=== PATIENT | female | born 1965 | race Caucasian/White ===

== ENCOUNTER → 2017-05-07 15:51 | Outpatient (CLI) | payer OTHER, SELFPAY ==
[2017-05-07 15:53] LABS: Bacteria 0 SEEN /hpf (None Seen); Mucous, Urine 0 SEEN /hpf (<or=2+); Red Blood Cells-Urine 0 SEEN /hpf (0-5); White Blood Cells 0 SEEN /hpf (0-5)
[2017-05-07 16:42] LABS: Color, Urine Straw (Yellow); Glucose, Dipstick Normal (Normal); Ketone-Dipstick Negative (Negative); Leukocyte Esterase-Dipstick Negative /ul (Negative); Nitrite-Dipstick Negative (Negative); Occult Blood-Urine Negative /ul (Negative); Protein-Dipstick Negative (Negative); Urine Bilirubin Dipstick Negative (Negative); Urine Clarity Clear (Clear); Urine Urobilinogen Normal (Normal); Urine pH 6.5 (5.0 - 8.0)
[2017-05-07 16:54] LABS: Squamous Epithelial Cells - UA 0-5 SEEN /hpf (5-10)
== END ==
PROVIDERS: Visit Provider Physician Assistant Surgical
DX: R30.0 Dysuria (principal)
CPT/HCPCS: 81001; 87086

== ENCOUNTER → 2017-07-24 14:16 | Outpatient (CLI) | payer OTHER, SELFPAY ==
[2017-07-24 14:20] LABS: Mucous, Urine 0 SEEN /hpf (<or=2+); Squamous Epithelial Cells - UA 0 SEEN /hpf (5-10)
[2017-07-24 14:24] LABS: Color, Urine Yellow (Yellow); Glucose, Dipstick Normal (Normal); Ketone-Dipstick Negative (Negative); Leukocyte Esterase-Dipstick 100 /ul (Negative); Nitrite-Dipstick Negative (Negative); Occult Blood-Urine 10 /ul (Negative); Protein-Dipstick Negative (Negative); Urine Bilirubin Dipstick Negative (Negative); Urine Clarity Clear (Clear); Urine Urobilinogen Normal (Normal)
[2017-07-24 14:36] LABS: Bacteria RARE /hpf (None Seen); Red Blood Cells-Urine 0-5 SEEN /hpf (0-5); White Blood Cells 0-5 SEEN /hpf (0-5)
== END ==
PROVIDERS: Visit Provider Nurse Practitioner Family
DX: R10.2 Pelvic and perineal pain (principal)
CPT/HCPCS: 81001; 87086; 87088

== ENCOUNTER → 2018-03-25 08:24 | Outpatient (CLI) | payer OTHER, SELFPAY ==
--- NOTE | 2018-03-25 08:29 | BI_ITS ---
MAMMOGRAPHY - BILATERAL SCREENING REASON FOR EXAM: Female, 52 years old. Routine annual screening examination. PERTINENT HISTORY: Grandmother with breast cancer. TECHNIQUE: Digital bilateral breast dejan (3D mammographic acquisition) in the CC and MLO projections. 2-D mediolateral oblique (MLO) and craniocaudad (CC) views of both breasts were obtained. CAD: Full Field Digital Mammography with Computer Added Detection was performed. COMPARISON: Comparison is made with prior study dated May 11, 2016. FINDINGS: Breast Composition: The breasts are heterogeneously dense, which may obscure small masses. There are no dominant masses or suspicious calcifications. Stable benign-appearing bilateral axillary lymph nodes. No other significant abnormalities are identified. There has been no significant change since the prior study. BI/SCREENING MAMM (CAD), BILAT IMPRESSION: Stable bilateral screening mammogram. Yearly follow-up mammogram recommended. (A) ASSESSMENT CATEGORY: BIRADS Category 2: Benign. A letter regarding these results will be sent to the patient by the facility within 30 days. Approximately 10% of breast cancers are not detected by mammography. A normal mammogram should not delay biopsy of a clinically suspicious abnormality. [id number] Electronically Signed: Alexis Greenfield MD at 9:42 EST , Service support ,
== END ==
DX: Z12.31 Encounter for screening mammogram for malignant neoplasm of breast (principal)
CPT/HCPCS: 77063; 77067

== ENCOUNTER → 2019-01-10 15:27 | Outpatient (CLI) | payer OTHER, SELFPAY ==
[2019-01-09 14:26] VITALS: BMI 22.4
[2019-01-10 16:19] LABS: Bacteria 0 SEEN /hpf (None Seen); Mucous, Urine 0 SEEN /hpf (<or=2+)
[2019-01-10 16:25] LABS: Color, Urine Yellow (Yellow); Glucose, Dipstick Normal (Normal); Ketone-Dipstick Negative (Negative); Leukocyte Esterase-Dipstick 100 /ul (Negative); Nitrite-Dipstick Negative (Negative); Occult Blood-Urine Negative /ul (Negative); Protein-Dipstick Negative (Negative); Urine Bilirubin Dipstick Negative (Negative); Urine Clarity Clear (Clear); Urine Urobilinogen Normal (Normal)
[2019-01-10 16:45] LABS: Red Blood Cells-Urine 0-5 SEEN /hpf (0-5); Squamous Epithelial Cells - UA 0-5 SEEN /hpf (5-10); White Blood Cells 10-25 SEEN /hpf (0-5)
== END ==
PROVIDERS: Referring Provider Nurse Practitioner Family; Visit Provider Nurse Practitioner Family
DX: R30.0 Dysuria (principal)
CPT/HCPCS: 81001; 87086; 87088; 87186

== ENCOUNTER → 2019-05-24 16:04 | Outpatient (CLI) | payer OTHER, SELFPAY ==
[2019-05-24 15:36] VITALS: BMI 25.2
[2019-05-24 16:45] LABS: Absolute Neutrophil Count 3.7 X10^3/uL (2.0-7.7); Basophil# 0.03 X10^3/uL; Basophil% 0.5 % (0-1); Eosinophil# 0.03 X10^3/uL; Eosinophils% 0.5 % (0-5); Hemoglobin 13.9 g/dL (12.0-15.0); Lymphocyte % 31.1 % (19-41); Mean Corp Hgb Conc 33.1 g/dL (32-36); Mean Corpuscular Hgb 31.7 pg (27.0-32.0); Mean Corpuscular Volume 95.9 fL (81-99); Mean Platelet Vol. 9.5 fl (6.2-12.0); Monocyte# 0.42 X10^3/uL; Monocyte% 6.9 % (0-10); NRBC Flagged by Analyzer 0 % (0-5); Neutrophil # 3.71 X10^3/uL (2.7-7.7); Neutrophil % 60.7 % (47-70); Platelet Count 211 K/mm3 (150-450); RBC Distribution Width CV 12.1 % (11.6-14.6); RBC Distribution Width SD 42.4 fl (35.1-43.9); Red Blood Count 4.38 M/mm3 (4.2-5.4); White Blood Count 6.1 K/mm3 (4.4-11.0)
[2019-05-24 17:05] LABS: ALB/GLOB Ratio 1.1 RATIO (0.9-2.4); AST(SGOT) 20 U/L (15-37); Alanine Aminotransfer ALT/SGPT 24 U/L (13-56); Albumin, Serum 3.9 g/dL (3.2-5.0); Alkaline Phosphatase 83 U/L (45-117); Anion Gap 6 (5-15); BUN 15 mg/dL (7-18); BUN/Creat Ratio 16.6 RATIO (10-20); Calcium,Total 9.1 mg/dL (8.5-10.1); Chloride 104 mmol/L (98-107); Cholesterol 184 mg/dL (200); EST Glomerular Filtration Rate 69 mL/min (>60); Est Glom Filt Rate - Afr Amer 84 mL/min (>60); Globulin 3.4 g/dL (2.2-4.2); Glucose 86 mg/dL (74-106); High Density Lipoprotein 36 mg/dL; Potassium 3.6 mmol/L (3.5-5.1); Protein, Total 7.3 g/dL (6.4-8.2); Sodium Level 139 mmol/L (136-145); Triglycerides 184 mg/dL; Very Low Density Lipoprotein 37 mg/dL (5-40)
== END ==
PROVIDERS: PCP Internal Medicine; Visit Provider Internal Medicine
DX: I10 Essential (primary) hypertension (principal)
CPT/HCPCS: 36415; 80053; 80061; 85025

== ENCOUNTER → 2019-07-21 08:28 | Outpatient (CLI) | payer OTHER, SELFPAY ==
[2019-05-24 15:36] VITALS: BMI 25.2
--- NOTE | 2019-07-21 08:29 | BI_ITS ---
MAMMOGRAPHY - BILATERAL SCREENING REASON FOR EXAM: Female, 54 years old. Routine annual screening examination. PERTINENT HISTORY: Grandmother with breast cancer. TECHNIQUE: Digital bilateral breast dae (3D mammographic acquisition) in the CC and MLO projections. 2-D mediolateral oblique (MLO) and craniocaudad (CC) views of both breasts were obtained. CAD: Full Field Digital Mammography with Computer Added Detection was performed. COMPARISON: Comparison is made with prior examination dated March 25, 2018 and May 11, 2016. FINDINGS: Breast Composition: The breasts are heterogeneously dense, which may obscure small masses. There are no dominant masses or suspicious calcifications. Stable benign-appearing bilateral axillary lymph nodes. No other significant abnormalities are identified. There has been no significant change since the prior study. BI/SCREEN MAMM (CAD) W/DAE BILAT IMPRESSION: Stable bilateral screening mammogram. Yearly follow-up mammogram recommended. (A) ASSESSMENT CATEGORY: BIRADS Category 2: Benign. A letter regarding these results will be sent to the patient by the facility within 30 days. Approximately 10% of breast cancers are not detected by mammography. A normal mammogram should not delay biopsy of a clinically suspicious abnormality. [id number] Electronically Signed: Alexis Greenfield, at 11:12 EDT , Service support ,
== END ==
PROVIDERS: PCP Internal Medicine; Referring Provider Internal Medicine; Visit Provider Internal Medicine
DX: Z12.31 Encounter for screening mammogram for malignant neoplasm of breast (principal)
CPT/HCPCS: 77063; 77067

== ENCOUNTER → 2019-10-31 13:25 | Outpatient (CLI) | payer OTHER, SELFPAY ==
[2019-10-31 09:25] VITALS: BMI 22.4
[2019-11-02 20:44] LABS: HPV APTIMA, High Risk Negative (Negative)
== END ==
PROVIDERS: PCP Internal Medicine; Referring Provider Nurse Practitioner Women's Health; Visit Provider Nurse Practitioner Women's Health
DX: Z12.4 Encounter for screening for malignant neoplasm of cervix (principal)
CPT/HCPCS: 87624; 88175; G0145

== ENCOUNTER 2019-11-22 20:16 | Emergency (ER) | payer OTHER, SELFPAY ==
[2019-10-31 09:25] VITALS: BMI 22.4
[2019-11-22 20:17] VITALS: BP 134/89; PULSE 108; RESP 20; TEMP 37.6; O2SAT 98; BMI 25.0
--- NOTE | 2019-11-22 21:18 | ED.VIS.GEN ---
History of Present Illness Chief Complaint: Bite Narrative: This patient is a 54-year-old female who was bit by a stray cat. She was bit on the left leg. This occurred about 2 hours before presentation. This is not someone's pet it is unable to be quarantined. She does note that it has bitten other neighbors. Patient otherwise denies any recent illness. No fevers vomiting diarrhea cough rhinorrhea. Past Medical History - Allergies and Home Meds Allergies/Adverse Reactions: Allergies No Known Allergies Allergy (Unverified 11/22/19 20:17) Primary Care Physician: Yunior Rosario MD [Primary Care Provider] - Smoking Status: Never smoker Physical Exam Vital Signs/Narrative: Vital Signs Temp Pulse Resp BP Pulse Ox 11/22/19 20:17 99.7 F H 108 H 20 H 134/89 H 98 Diagnostic/Tx/Re-eval - Medical Decision Making Patient was bitten by a cat that is unable to be quarantined. Therefore I do feel rabies prophylaxis indicated. Rabies immunoglobulin was injected at the sites of cat bite. She was given first dose of rabies vaccination. She was placed on antibiotic prophylaxis and given first dose of Keflex here. Patient was discharged. She will return to complete the vaccination series. ED Disposition - Plan for ED Patient: Disposition: Home or Assisted Living Diagnosis: Cat bite of lower leg Instructions: ED Bite Cat Prescriptions: Cephalexin [Keflex] 500 mg PO Q6 #40 cap Prescription Printed Referrals: Yunior Rosario MD [Primary Care Provider] -
[2019-11-22] MEDS: Rabies Immune Globulin/PF 300 UNIT/ML, 5 ML VIAL 1240 UNIT IM (21:45)
[2019-11-22] MEDS: Rabies Vaccine,Human Diploid 2.5 UNITS Vial IM (21:52)
[2019-11-22] MEDS: Cephalexin 250 MG Capsule 500 MG PO (22:14)
[2019-11-22 22:23] VITALS: BP 134/68; PULSE 90; RESP 18; O2SAT 96
[2019-11-22 22:25] VITALS: RESP 16
== END 2019-11-22 22:25 | disposition home or self-care (01) ==
PROVIDERS: Emergency Provider Emergency Medicine; PCP Internal Medicine
DX: S81.852A Open bite, left lower leg, initial encounter (principal); W55.01XA Bitten by cat, initial encounter; Y93.9 Activity, unspecified; Y92.89 Other specified places as the place of occurrence of the external cause; Y99.9 Unspecified external cause status
CPT/HCPCS: 90375; 90675; 96372; 99282; A4216

== ENCOUNTER 2019-11-25 13:25 | Outpatient (CLI) | payer OTHER, SELFPAY ==
[2019-11-25 13:26] VITALS: BP 124/66; PULSE 81; RESP 16; TEMP 36.2; O2SAT 97; BMI 23.8
[2019-11-25] MEDS: Rabies Vaccine,Human Diploid 2.5 UNITS Vial IM (14:09)
[2019-11-25 14:23] VITALS: BP 100/60; PULSE 76; RESP 18; TEMP 36.6; O2SAT 98; BMI 20.5
== END 2019-11-25 14:20 | disposition home or self-care (01) ==
PROVIDERS: PCP Internal Medicine
DX: Z23 Encounter for immunization (principal)
CPT/HCPCS: 90471; 90675

== ENCOUNTER 2019-11-29 16:50 | Outpatient (CLI) | payer OTHER, SELFPAY ==
[2019-11-29 16:58] VITALS: BP 120/83; PULSE 72; RESP 16; TEMP 36.2; O2SAT 99; BMI 24.1
[2019-11-29] MEDS: Rabies Vaccine,Human Diploid 2.5 UNITS Vial IM (17:04)
== END 2019-11-29 17:10 | disposition home or self-care (01) ==
PROVIDERS: PCP Internal Medicine
DX: Z00.00 Encounter for general adult medical examination without abnormal findings (principal)
CPT/HCPCS: 90471; 90675

== ENCOUNTER 2019-12-06 14:38 | Outpatient (CLI) | payer OTHER, SELFPAY ==
[2019-12-06 14:39] VITALS: BP 106/80; PULSE 84; PULSE 89; RESP 14; TEMP 37.3; O2SAT 94; BMI 23.8
[2019-12-06] MEDS: Rabies Vaccine,Human Diploid 2.5 UNITS Vial IM (15:07)
== END 2019-12-06 15:17 | disposition home or self-care (01) ==
PROVIDERS: PCP Internal Medicine; Visit Provider Emergency Medicine
CPT/HCPCS: 90675; 96372

== ENCOUNTER → 2020-01-05 09:10 | Outpatient (CLI) | payer OTHER, SELFPAY ==
[2020-01-05 08:59] VITALS: BMI 25.0
[2020-01-05 12:17] LABS: Anion Gap 7 (5-15); BUN 23 mg/dL (7-18); BUN/Creat Ratio 24.1 RATIO (10-20); Calcium,Total 9.5 mg/dL (8.5-10.1); Chloride 102 mmol/L (98-107); Creatinine, Serum 0.96 mg/dL (0.55-1.02); EST Glomerular Filtration Rate 65 mL/min (>60); Est Glom Filt Rate - Afr Amer 78 mL/min (>60); Glucose 108 mg/dL (74-106); Sodium Level 138 mmol/L (136-145)
== END ==
PROVIDERS: PCP Internal Medicine; Referring Provider Internal Medicine; Visit Provider Internal Medicine
DX: I10 Essential (primary) hypertension (principal)
CPT/HCPCS: 36415; 80048

== ENCOUNTER → 2020-04-05 09:06 | Outpatient (CLI) | payer OTHER, SELFPAY ==
[2020-04-05 08:53] VITALS: BMI 24.5
[2020-04-05 12:23] LABS: Absolute Lymphocyte Count 1.53 X10^3/uL (0.83-4.51); Basophil# 0.04 X10^3/uL; Eosinophil# 0.04 X10^3/uL; Hematocrit 44.2 % (37-47); Hemoglobin 14.6 g/dL (12.0-15.0); Lymphocyte # 1.53 X10^3/ul (4.0); Lymphocyte % 38.6 % (19-41); Mean Corpuscular Hgb 31.1 pg (27.0-32.0); Mean Corpuscular Volume 94.2 fL (81-99); Mean Platelet Vol. 10.4 fl (6.2-12.0); Monocyte# 0.39 X10^3/uL; Monocyte% 9.8 % (0-10); NRBC Flagged by Analyzer 0 % (0-5); Neutrophil # 1.95 X10^3/uL (2.7-7.7); Neutrophil % 49.3 % (47-70); Platelet Count 212 K/mm3 (150-450); RBC Distribution Width SD 41.9 fl (35.1-43.9); Red Blood Count 4.69 M/mm3 (4.2-5.4)
[2020-04-05 12:59] LABS: ALB/GLOB Ratio 1.2 RATIO (0.9-2.4); AST(SGOT) 21 U/L (15-37); Alanine Aminotransfer ALT/SGPT 25 U/L (13-56); Alkaline Phosphatase 92 U/L (45-117); Anion Gap 7 (5-15); BUN 27 mg/dL (7-18); BUN/Creat Ratio 26.2 RATIO (10-20); Calcium,Total 9.3 mg/dL (8.5-10.1); Chloride 104 mmol/L (98-107); Cholesterol 197 mg/dL (200); Creatinine, Serum 1.03 mg/dL (0.55-1.02); EST Glomerular Filtration Rate 59 mL/min (>60); Est Glom Filt Rate - Afr Amer 72 mL/min (>60); Globulin 3.3 g/dL (2.2-4.2); Glucose 92 mg/dL (74-106); High Density Lipoprotein 49 mg/dL; Potassium 3.9 mmol/L (3.5-5.1); Protein, Total 7.3 g/dL (6.4-8.2); Sodium Level 138 mmol/L (136-145); Triglycerides 67 mg/dL; Very Low Density Lipoprotein 13 mg/dL (5-40)
== END ==
PROVIDERS: PCP Internal Medicine; Referring Provider Internal Medicine; Visit Provider Internal Medicine
DX: I10 Essential (primary) hypertension (principal)
CPT/HCPCS: 36415; 80053; 80061; 85025

== ENCOUNTER → 2020-10-11 09:28 | Outpatient (CLI) | payer OTHER, SELFPAY ==
[2020-10-11 09:02] VITALS: BMI 24.5
[2020-10-11 12:41] LABS: Anion Gap 5 (5-15); BUN 25 mg/dL (7-18); BUN/Creat Ratio 29.1 RATIO (10-20); Calcium,Total 9.5 mg/dL (8.5-10.1); Chloride 103 mmol/L (98-107); Creatinine, Serum 0.86 mg/dL (0.55-1.02); EST Glomerular Filtration Rate 73 mL/min (>60); Est Glom Filt Rate - Afr Amer 88 mL/min (>60); Glucose 95 mg/dL (74-106); Potassium 4.2 mmol/L (3.5-5.1); Sodium Level 138 mmol/L (136-145)
== END ==
PROVIDERS: PCP Internal Medicine; Referring Provider Internal Medicine; Visit Provider Internal Medicine
DX: I10 Essential (primary) hypertension (principal)
CPT/HCPCS: 36415; 80048

== ENCOUNTER → 2020-11-22 08:22 | Outpatient (CLI) | payer OTHER, SELFPAY ==
--- NOTE | 2020-11-22 08:42 | BI_ITS ---
MAMMOGRAPHY - BILATERAL SCREENING REASON FOR EXAM: Female, 55 years old. Routine annual screening examination. PERTINENT HISTORY: Grandmother with breast cancer. TECHNIQUE: Digital bilateral breast dae (3D mammographic acquisition) in the CC and MLO projections. 2-D mediolateral oblique (MLO) and craniocaudad (CC) views of both breasts were obtained. CAD: Full Field Digital Mammography with Computer Added Detection was performed. COMPARISON: Comparison is made with prior study dated 07/21/2019 and 03/25/2018. FINDINGS: Breast Composition: The breasts are heterogeneously dense, which may obscure small masses. There are no dominant masses or suspicious calcifications. Stable benign-appearing bilateral axillary. No other significant abnormalities are identified. There has been no significant change since the prior study. BI/SCRN MAMM (CAD)W/DAE BILAT IMPRESSION: Stable bilateral screening mammogram. Yearly follow-up mammogram recommended. (A) ASSESSMENT CATEGORY: BIRADS Category 2: Benign. A letter regarding these results will be sent to the patient by the facility within 30 days. Approximately 10% of breast cancers are not detected by mammography. A normal mammogram should not delay biopsy of a clinically suspicious abnormality. [id number] Electronically Signed: Alexis Greenfield MD at 9:42 EDT , Service support ,
== END ==
PROVIDERS: PCP Internal Medicine; Referring Provider Internal Medicine; Visit Provider Internal Medicine
DX: Z12.31 Encounter for screening mammogram for malignant neoplasm of breast (principal)
CPT/HCPCS: 77063; 77067

== ENCOUNTER → 2021-09-12 | Outpatient (CLI) | payer OTHER, SELFPAY ==
[2021-09-12 10:59] LABS: White Blood Cells 0 SEEN /hpf (0-5)
[2021-09-12 11:00] LABS: Bacteria 0 SEEN /hpf (None Seen); Mucous, Urine 0 SEEN /hpf (<or=2+); Red Blood Cells-Urine 0 SEEN /hpf (0-5)
[2021-09-12 12:20] LABS: Color, Urine Yellow (Yellow); Glucose, Dipstick Normal (Normal); Ketone-Dipstick Negative (Negative); Leukocyte Esterase-Dipstick Negative /ul (Negative); Nitrite-Dipstick Negative (Negative); Occult Blood-Urine Negative /ul (Negative); Protein-Dipstick Negative (Negative); Urine Bilirubin Dipstick Negative (Negative); Urine Clarity Sl. Cloudy (Clear); Urine Urobilinogen Normal (Normal); Urine pH 6.5 (5.0 - 8.0)
[2021-09-12 12:23] LABS: Anion Gap 3 (5-15); BUN 24 mg/dL (7-18); BUN/Creat Ratio 24.6 RATIO (10-20); Calcium,Total 9.6 mg/dL (8.5-10.1); Chloride 104 mmol/L (98-107); Creatinine, Serum 0.98 mg/dL (0.55-1.02); EST Glomerular Filtration Rate 63 mL/min (>60); Est Glom Filt Rate - Afr Amer 76 mL/min (>60); Glucose 100 mg/dL (74-106); Potassium 4.4 mmol/L (3.5-5.1); Sodium Level 138 mmol/L (136-145)
[2021-09-12 12:28] LABS: Squamous Epithelial Cells - UA 0-5 SEEN /hpf (5-10)
== END | disposition home or self-care (01) ==
LOC: BIMLAB 10:49
PROVIDERS: PCP Internal Medicine; Referring Provider Internal Medicine; Visit Provider Internal Medicine
DX: R39.15 Urgency of urination (principal); I10 Essential (primary) hypertension
CPT/HCPCS: 36415; 80048; 81001

== ENCOUNTER → 2022-01-23 | Outpatient (CLI) | payer OTHER, SELFPAY ==
--- NOTE | 2022-01-23 09:29 | BI_ITS ---
MAMMOGRAPHY - BILATERAL SCREENING REASON FOR EXAM: Female, 56 years old. Routine annual screening examination. PERTINENT HISTORY: Grandmother with breast cancer. TECHNIQUE: Digital bilateral breast dae (3D mammographic acquisition) in the CC and MLO projections. 2-D mediolateral oblique (MLO) and craniocaudad (CC) views of both breasts were obtained. CAD: Full Field Digital Mammography with Computer Added Detection was performed. COMPARISON: 11/22/2020, 07/21/2019. FINDINGS: Breast Composition: The breasts are heterogeneously dense, which may obscure small masses. There are no dominant masses or suspicious calcifications. Stable benign-appearing bilateral axillary lymph nodes. No other significant abnormalities are identified. There has been no significant change since the prior study. BI/SCRN MAMM (CAD)W/DAE BILAT IMPRESSION: Stable bilateral screening mammogram. Yearly follow-up mammogram recommended. (A) ASSESSMENT CATEGORY: BIRADS Category 2: Benign. A letter regarding these results will be sent to the patient by the facility within 30 days. Approximately 10% of breast cancers are not detected by mammography. A normal mammogram should not delay biopsy of a clinically suspicious abnormality. Electronically Signed: Moody Green, at 11:55 EST ,
== END | disposition home or self-care (01) ==
LOC: OPBI 09:28
PROVIDERS: PCP Internal Medicine; Referring Provider Internal Medicine; Visit Provider Internal Medicine
DX: Z12.31 Encounter for screening mammogram for malignant neoplasm of breast (principal); Z80.3 Family history of malignant neoplasm of breast
CPT/HCPCS: 77063; 77067

== ENCOUNTER → 2022-03-13 | Outpatient (CLI) | payer OTHER, SELFPAY ==
[2022-03-13 12:30] LABS: Absolute Lymphocyte Count 1.56 X10^3/uL (0.83-4.51); Absolute Neutrophil Count 4.9 X10^3/uL (2.0-7.7); Basophil# 0.03 X10^3/uL; Basophil% 0.4 % (0-1); Eosinophil# 0.02 X10^3/uL; Eosinophils% 0.3 % (0-5); Hematocrit 45.1 % (37-47); Hemoglobin 15.2 g/dL (12.0-15.0); Lymphocyte # 1.56 X10^3/ul (0.83-4.51); Lymphocyte % 22.5 % (19-41); Mean Corp Hgb Conc 33.7 g/dL (32-36); Mean Corpuscular Hgb 31.7 pg (27.0-32.0); Mean Platelet Vol. 9.6 fl (6.2-12.0); Monocyte% 5.8 % (0-10); NRBC Flagged by Analyzer 0 % (0-5); Neutrophil % 70.7 % (47-70); Platelet Count 257 K/mm3 (150-450); RBC Distribution Width CV 12.3 % (11.6-14.6); RBC Distribution Width SD 42.5 fl (35.1-43.9); White Blood Count 6.9 K/mm3 (4.4-11.0)
[2022-03-13 13:01] LABS: ALB/GLOB Ratio 1.1 RATIO (0.9-2.4); AST(SGOT) 22 U/L (15-37); Alanine Aminotransfer ALT/SGPT 30 U/L (13-56); Albumin, Serum 3.9 g/dL (3.2-5.0); Alkaline Phosphatase 99 U/L (45-117); Anion Gap 7 (5-15); BUN 23 mg/dL (7-18); BUN/Creat Ratio 21.3 RATIO (10-20); Calcium,Total 9.8 mg/dL (8.5-10.1); Chloride 101 mmol/L (98-107); Cholesterol 245 mg/dL (200); Creatinine, Serum 1.08 mg/dL (0.55-1.02); EST Glomerular Filtration Rate 56 mL/min (>60); Est Glom Filt Rate - Afr Amer 67 mL/min (>60); Globulin 3.7 g/dL (2.2-4.2); Glucose 113 mg/dL (74-106); High Density Lipoprotein 44 mg/dL; Potassium 3.9 mmol/L (3.5-5.1); Protein, Total 7.6 g/dL (6.4-8.2); Sodium Level 136 mmol/L (136-145); Triglycerides 88 mg/dL; Very Low Density Lipoprotein 18 mg/dL (5-40)
== END | disposition home or self-care (01) ==
PROVIDERS: PCP Internal Medicine; Referring Provider Internal Medicine; Visit Provider Internal Medicine
DX: I10 Essential (primary) hypertension (principal)
CPT/HCPCS: 36415; 80053; 80061; 85025

== ENCOUNTER → 2022-03-17 | Outpatient (CLI) | payer OTHER, SELFPAY ==
[2022-03-17 11:06] LABS: Bacteria 0 SEEN /hpf (None Seen); Mucous, Urine 0 SEEN /hpf (<or=2+); Red Blood Cells-Urine 0 SEEN /hpf (0-5); Squamous Epithelial Cells - UA 0 SEEN /hpf (5-10); White Blood Cells 0 SEEN /hpf (0-5)
[2022-03-17 12:13] LABS: Color, Urine Yellow (Yellow); Glucose, Dipstick Normal (Normal); Ketone-Dipstick Negative (Negative); Leukocyte Esterase-Dipstick Negative /ul (Negative); Nitrite-Dipstick Negative (Negative); Occult Blood-Urine Negative /ul (Negative); Protein-Dipstick Negative (Negative); Specific Gravity, Urine 1.005 (1.002-1.030); Urine Bilirubin Dipstick Negative (Negative); Urine Clarity Clear (Clear); Urine Urobilinogen Normal (Normal)
== END | disposition home or self-care (01) ==
LOC: LABSPEC 10:59
PROVIDERS: PCP Internal Medicine; Referring Provider Nurse Practitioner Family; Visit Provider Nurse Practitioner Family
DX: R10.9 Unspecified abdominal pain (principal)
CPT/HCPCS: 81001; 87086; 87088

== ENCOUNTER → 2022-09-18 | Outpatient (CLI) | payer OTHER, SELFPAY ==
[2022-09-18 09:17] LABS: Bacteria 0 SEEN /hpf (None Seen); Mucous, Urine 0 SEEN /hpf (<or=2+); Red Blood Cells-Urine 0 SEEN /hpf (0-5); Squamous Epithelial Cells - UA 0 SEEN /hpf (5-10); White Blood Cells 0 SEEN /hpf (0-5)
[2022-09-18 12:42] LABS: Color, Urine Straw (Yellow); Glucose, Dipstick Normal (Normal); Ketone-Dipstick Negative (Negative); Leukocyte Esterase-Dipstick Negative /ul (Negative); Nitrite-Dipstick Negative (Negative); Occult Blood-Urine Negative /ul (Negative); Protein-Dipstick Negative (Negative); Specific Gravity, Urine 1.005 (1.002-1.030); Urine Bilirubin Dipstick Negative (Negative); Urine Clarity Clear (Clear); Urine Urobilinogen Normal (Normal)
[2022-09-18 13:14] LABS: Anion Gap 7 (5-15); BUN 21 mg/dL (7-18); BUN/Creat Ratio 22.2 RATIO (10-20); Calcium,Total 9.5 mg/dL (8.5-10.1); Chloride 102 mmol/L (98-107); Cholesterol 204 mg/dL (200); Creatinine, Serum 0.95 mg/dL (0.55-1.02); EST Glomerular Filtration Rate 65 mL/min (>60); Est Glom Filt Rate - Afr Amer 78 mL/min (>60); Glucose 99 mg/dL (74-106); High Density Lipoprotein 48 mg/dL; Potassium 4.7 mmol/L (3.5-5.1); Sodium Level 139 mmol/L (136-145); Triglycerides 45 mg/dL; Very Low Density Lipoprotein 9 mg/dL (5-40)
== END | disposition home or self-care (01) ==
LOC: BIMLAB 09:16
PROVIDERS: PCP Internal Medicine; Referring Provider Internal Medicine; Visit Provider Internal Medicine
DX: R39.15 Urgency of urination (principal); I10 Essential (primary) hypertension
CPT/HCPCS: 36415; 80048; 80061; 81001

== ENCOUNTER → 2023-03-09 | Outpatient (CLI) | payer OTHER, SELFPAY ==
[2023-03-09 10:24] LABS: Bacteria 0 SEEN /hpf (None Seen); Mucous, Urine 0 SEEN /hpf (<or=2+)
[2023-03-09 10:30] LABS: Color, Urine Yellow (Yellow); Glucose, Dipstick Normal (Normal); Ketone-Dipstick Negative (Negative); Leukocyte Esterase-Dipstick 25 /ul (Negative); Nitrite-Dipstick Negative (Negative); Occult Blood-Urine 10 /ul (Negative); Protein-Dipstick Negative (Negative); Urine Bilirubin Dipstick Negative (Negative); Urine Clarity Clear (Clear); Urine Urobilinogen Normal (Normal)
[2023-03-09 10:43] LABS: Red Blood Cells-Urine 0-5 SEEN /hpf (0-5); Squamous Epithelial Cells - UA 0-5 SEEN /hpf (5-10); White Blood Cells 0-5 SEEN /hpf (0-5)
== END | disposition home or self-care (01) ==
LOC: LABSPEC 10:17
PROVIDERS: PCP Internal Medicine; Referring Provider Physician Assistant; Visit Provider Physician Assistant
DX: R30.0 Dysuria (principal)
CPT/HCPCS: 81001; 87086; 87088; 87186

== ENCOUNTER → 2023-04-02 | Outpatient (CLI) | payer OTHER, SELFPAY ==
[2023-04-02 12:34] LABS: Absolute Lymphocyte Count 1.66 X10^3/uL (0.83-4.51); Absolute Neutrophil Count 2.3 X10^3/uL (2.0-7.7); Basophil# 0.04 X10^3/uL; Basophil% 0.9 % (0-1); Eosinophil# 0.07 X10^3/uL; Eosinophils% 1.6 % (0-5); Hematocrit 42.8 % (37-47); Lymphocyte # 1.66 X10^3/ul (0.83-4.51); Lymphocyte % 37.5 % (19-41); Mean Corp Hgb Conc 32.7 g/dL (32-36); Mean Corpuscular Hgb 31.3 pg (27.0-32.0); Mean Corpuscular Volume 95.7 fL (81-99); Mean Platelet Vol. 9.8 fl (6.2-12.0); Monocyte# 0.34 X10^3/uL; Monocyte% 7.7 % (0-10); NRBC Flagged by Analyzer 0 % (0-5); Neutrophil # 2.32 X10^3/uL (2.7-7.7); Neutrophil % 52.3 % (47-70); Platelet Count 216 K/mm3 (150-450); Red Blood Count 4.47 M/mm3 (4.2-5.4); White Blood Count 4.4 K/mm3 (4.4-11.0)
[2023-04-02 13:12] LABS: ALB/GLOB Ratio 1.1 RATIO (0.9-2.4); AST(SGOT) 25 U/L (15-37); Alanine Aminotransfer ALT/SGPT 32 U/L (13-56); Albumin, Serum 3.7 g/dL (3.2-5.0); Alkaline Phosphatase 88 U/L (45-117); Anion Gap 3 (5-15); BUN 24 mg/dL (7-18); Calcium,Total 9.4 mg/dL (8.5-10.1); Chloride 102 mmol/L (98-107); Cholesterol 211 mg/dL (200); Creatinine, Serum 0.92 mg/dL (0.55-1.02); EST Glomerular Filtration Rate 66 mL/min (>60); Est Glom Filt Rate - Afr Amer 80 mL/min (>60); Globulin 3.4 g/dL (2.2-4.2); Glucose 105 mg/dL (74-106); High Density Lipoprotein 45 mg/dL; Potassium 4.2 mmol/L (3.5-5.1); Protein, Total 7.1 g/dL (6.4-8.2); Sodium Level 134 mmol/L (136-145); Triglycerides 74 mg/dL; Very Low Density Lipoprotein 15 mg/dL (5-40)
== END | disposition home or self-care (01) ==
LOC: BIMLAB 08:30
PROVIDERS: PCP Internal Medicine; Referring Provider Internal Medicine; Visit Provider Internal Medicine
DX: Z00.00 Encounter for general adult medical examination without abnormal findings (principal)
CPT/HCPCS: 36415; 80053; 80061; 85025

== ENCOUNTER → 2023-04-30 | Outpatient (CLI) | payer OTHER, SELFPAY ==
--- NOTE | 2023-04-30 09:55 | BI_ITS ---
MAMMOGRAPHY - BILATERAL SCREENING REASON FOR EXAM: Female, 57 years old. Routine annual screening examination. PERTINENT HISTORY: Grandmother with breast cancer. TECHNIQUE: Digital bilateral breast dae (3D mammographic acquisition) in the CC and MLO projections. 2-D mediolateral oblique (MLO) and craniocaudad (CC) views of both breasts were obtained. CAD: Full Field Digital Mammography with Computer Added Detection was performed. COMPARISON: Comparison is made with prior study dated January 23, 2022 and November 22, 2020. FINDINGS: Breast Composition: The breasts are heterogeneously dense, which may obscure small masses. There are no dominant masses or suspicious calcifications. Stable bilateral fat containing axillary lymph nodes. No other significant abnormalities are identified. There has been no significant change since the prior study. BI/SCRN MAMM (CAD)W/DAE BILAT IMPRESSION: Stable bilateral screening mammogram. Yearly follow-up mammogram recommended. (A) ASSESSMENT CATEGORY: BIRADS Category 2: Benign. A letter regarding these results will be sent to the patient by the facility within 30 days. Approximately 10% of breast cancers are not detected by mammography. A normal mammogram should not delay biopsy of a clinically suspicious abnormality. [id number] Electronically Signed: Alexis Greenfield MD at 11:29 EST ,
--- OUTSIDE RECORDS SUMMARY | 2023-04-30 10:11 | XMS RPT_ITS | CCD ---
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, unspecified; Translations: [Disorder of the skin and subcutaneous tissue, unspecified] Onset: 08-20-2017 Episodic Results Test Name Value Interpretation Reference Range Facil ity Encounters Encounter Date Encounter Type Care Provider Facility Start: 08-20-2017 End: 08-25-2017 Ambulatory DEJA CARLISLE [facility] Payer Category Payer Self-pay Summary Purpose Family History No Family History Records Found Advance Directives No Advanced Directives Records Found Additional Source Comments INFORMATION SOURCE (unrecogn ized section and content) FOR RECORDS PERTAINING TO PATIENTS WHO ARE OR HAVE BEEN ENROLLED IN A CHEMICAL DEPENDENCY/SUBSTANCEABUSE PROGRAM, SOME INFORMATION MAY BE OMITTED. This clinical summary was aggregated from multiple sources. Caution should be exercised in using it in the provision of clinical care. This summary normalizes information from multiple sources, and as a consequence, information in this document may materially change the coding, format and clinical context of patient data. In addition, data may be omitted in some cases. CLINICAL DECISIONS SHOULD BE BASED ON THE PRIMARY CLINICAL RECORDS. [employer] provides no warranty or guarantee of the accuracy or completeness of information in this document.
== END | disposition home or self-care (01) ==
LOC: OPBI 09:54
PROVIDERS: PCP Internal Medicine; Referring Provider Internal Medicine; Visit Provider Internal Medicine
DX: Z12.31 Encounter for screening mammogram for malignant neoplasm of breast (principal); Z80.3 Family history of malignant neoplasm of breast
CPT/HCPCS: 77063; 77067

== ENCOUNTER → 2023-08-11 | Outpatient (CLI) | payer OTHER, SELFPAY | END | disposition home or self-care (01) | PROVIDERS: PCP Internal Medicine; Visit Provider Physician Assistant | DX: N39.0 Urinary tract infection, site not specified (principal) | CPT/HCPCS: 87086 ==

== ENCOUNTER → 2023-08-19 | Outpatient (CLI) | payer OTHER, SELFPAY | END | disposition home or self-care (01) | LOC: BIMLAB 09:37 | PROVIDERS: PCP Internal Medicine; Referring Provider Internal Medicine; Visit Provider Internal Medicine | DX: R10.819 Abdominal tenderness, unspecified site (principal) ==

== ENCOUNTER → 2023-08-28 | Outpatient (CLI) | payer OTHER, SELFPAY ==
--- NOTE | 2023-08-28 10:39 | US_ITS ---
HISTORY: urinary incontinence, suprapubic tenderness. TECHNIQUE: Mosley scale and color doppler images were obtained of the kidneys. 84 images. COMPARISON: CT 03/05/2004. FINDINGS: RIGHT KIDNEY: 10 cm in length with a cortical thickness of 1.3 cm. Contour and echogenicity unremarkable. Mild hydronephrosis. 4 mm echogenic focus in the interpolar region. 3 mm echogenic focus in the lower pole. LEFT KIDNEY: 10.8 cm in length with a cortical thickness of 1.5 cm. Contour and echogenicity unremarkable. No hydronephrosis. No gross renal mass demonstrated. URINARY BLADDER: Unremarkable at 204 cc with a wall thickness of 1 mm. Bilateral ureteral jets visualized. Minimal 10 mm post void residual. US/Kidney and Bladder IMPRESSION: Mild right hydronephrosis with small right renal calculi. Unremarkable examination of the left kidney. Electronically Signed: Hawa Medley MD at 12:09 EDT ,
== END | disposition home or self-care (01) ==
LOC: US 10:39
PROVIDERS: PCP Internal Medicine; Referring Provider Nurse Practitioner; Visit Provider Nurse Practitioner
DX: R10.819 Abdominal tenderness, unspecified site (principal); R32 Unspecified urinary incontinence
CPT/HCPCS: 76770

== ENCOUNTER → 2023-10-01 | Outpatient (CLI) | payer OTHER, SELFPAY ==
[2023-10-01 11:25] LABS: ALB/GLOB Ratio 1.1 RATIO (0.9-2.4); AST(SGOT) 19 U/L (15-37); Alanine Aminotransfer ALT/SGPT 20 U/L (13-56); Albumin, Serum 3.5 g/dL (3.2-5.0); Alkaline Phosphatase 102 U/L (45-117); Anion Gap 3 (5-15); BUN 27 mg/dL (7-18); BUN/Creat Ratio 27.4 RATIO (10-20); Calcium,Total 9.2 mg/dL (8.5-10.1); Chloride 107 mmol/L (98-107); Cholesterol 205 mg/dL (200); Creatinine, Serum 0.99 mg/dL (0.55-1.02); EST Glomerular Filtration Rate 61 mL/min (>60); Est Glom Filt Rate - Afr Amer 74 mL/min (>60); Globulin 3.2 g/dL (2.2-4.2); Glucose 100 mg/dL (74-106); High Density Lipoprotein 47 mg/dL; Potassium 4.8 mmol/L (3.5-5.1); Protein, Total 6.7 g/dL (6.4-8.2); Sodium Level 139 mmol/L (136-145); Triglycerides 88 mg/dL; Very Low Density Lipoprotein 18 mg/dL (5-40)
== END | disposition home or self-care (01) ==
LOC: BIMLAB 09:12
PROVIDERS: PCP Internal Medicine; Referring Provider Internal Medicine; Visit Provider Internal Medicine
DX: I10 Essential (primary) hypertension (principal); E78.5 Hyperlipidemia, unspecified
CPT/HCPCS: 36415; 80053; 80061

== ENCOUNTER 2023-10-11 07:19 | Day surgery (SDC) | payer OTHER, SELFPAY ==
[2023-10-11] VITALS (9 sets, daily range): BP systolic 87–118; BP diastolic 53–84; PULSE 56–87; RESP 16; TEMP 36.3–37.2; O2SAT 95–100; BMI 23.3
--- NOTE | 2023-10-11 07:43 | PCM.PRE.AN2 ---
ASA Classification* ASA Classification ASA Classification: 2 Assessment & Plan Anesthesia* Anesthesia Assessment Anesthesia Assessment: Discussed sedation and/or anesthesia options, risks, benefits, and alternatives with patient/parents/legal guardian/POA. Questions invited. The patient/parents/legal guardian/POA seems to understand and agrees to proceed with anesthesia plan. Reviewed the physical assessment, medical history, allergy history and patient home medications list prior to surgery/procedure/anesthetic and documented any changes. Performed airway and anesthesia risk assessments. Anesthesia Type Anesthesia Type: MAC Anesthesia Focused Assessment* Temperature: 98.6 F Pulse Rate: 87 Blood Pressure: 118/84 Respiratory Rate: 16 Pulse Ox: 100 Airway Assessment Mouth opens: >3 cm Mallampati Score: II Focused Labs Anesthesia Preop lab: CBC WBC 4.4 K/mm3 (4.4-11.0) 04/02/23 08:30 RBC 4.47 M/mm3 (4.2-5.4) 04/02/23 08:30 Hgb 14.0 g/dL (12.0-15.0) 04/02/23 08:30 Hct 42.8 % (37-47) 04/02/23 08:30 Plt Count 216 K/mm3 (150-450) 04/02/23 08:30 CHEMISTRY Potassium 4.8 mmol/L (3.5-5.1) 10/01/23 09:12 Sodium 139 mmol/L (136-145) 10/01/23 09:12 BUN 27 mg/dL (7-18) H 10/01/23 09:12 Creatinine 0.99 mg/dL (0.55-1.02) 10/01/23 09:12 Glucose 100 mg/dL (74-106) 10/01/23 09:12 COAG Tst Clinic Negative 07/24/17 13:34 Pre-Assessment Diagnosis/Proposed Procedure Planned Operative Procedure(s): CSCOPE Anesthesia History 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 When Was Last Pacemaker Check QUESTION #4 FULL TEXT: You/Your Family Experience fever (hyperthermia) with Anesthesia Last Oral Intake Last Oral intake: Last Oral Intake NPO since 04:30 10/11/23 07:34 Meds taken in AM with sips of Yes 10/11/23 07:34 water? 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 Female Yes 10/06/23 11:29 HX of Motion Sickness Yes 10/06/23 11:29 HX of N/V After Surgery No 10/06/23 11:29 Non-Smoker Yes 10/06/23 11:29 Duration of Surgery greater No 10/06/23 11:29 than 60 minutes Number of Risk Factors 3 10/06/23 11:29 PONV Score Moderate Risk 10/06/23 11:29 Height & Weight Height & Weight: Anesthesia: Height & Weight Height 5 ft 2 in 10/11/23 07:34 Weight: 58 kg 10/11/23 07:34 Body Mass Index (BMI) 23.3 10/11/23 07:34 Respiratory Assessment Respiratory Assessment - livestock farmworker: Respiratory Tract Infection Hx - livestock farmworker Hx Respiratory Tract Infection No 10/06/23 11:29 STOP Sleep Apnea STOP Sleep Apnea - livestock farmworker: STOP Sleep Apnea - livestock farmworker Hx Hypertension Yes: CONTROLLED WITH MED 10/06/23 11:29 Hx Sleep Apnea No 10/06/23 11:29 CPAP BIPAP Do you snore loudly (louder No 10/06/23 11:29 than talking or can be heard Do you often feel tired/ No 10/06/23 11:29 fatigued/ sleepy during daytime? Has anyone observed you stop No 10/06/23 11:29 breathing during sleep? STOP Results Negative 10/06/23 11:29 QUESTION #5 FULL TEXT : Do you snore loudly (louder than talking or can be heard through closed doors)? 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 Specify any problems Hx of Preganancy in last 3 N/A 10/06/23 11:29 Months Nurse Filling Out Transfusion NBUCHER 10/06/23 11:29 & Questions: Date: 10/06/23 10/06/23 11:29 Time: 11:29 10/06/23 11:29 Patient unable to answer at this time (ie. confused, unrespo /Reproduction History /Reproductive History - livestock farmworker: /Reproductive Hx- livestock farmworker Hx Now No 10/06/23 11:29 Gestational Age (in weeks): EDC: Hx Hx Para Hx Section SAB No 10/06/23 11:29 Active Medications Active Medications: Current Medications Generic Name Dose Route Start Last Admin Trade Name Freq PRN Reason Stop Dose Admin Lactated Ringer's 1,000 mls @ 15 mls/hr 10/11/23 07:30 IV .Q48H DEREK PFSH Medical History Wears contact lenses Post-menopausal High cholesterol Kidney stone Non-smoker Family hx of colon cancer Encounter for vaccination Colon cancer screening Preventative health care Hyperlipidemia Urinary urgency Varicose veins of right lower extremity COVID-19 Health care maintenance Back pain HTN (hypertension) Home Medications ?Medication ?Instructions ?Recorded ?Last Taken ?Type multivitamin 1 cap PO DAILY 10/31/19 Unknown History hydrochlorothiazide 12.5 mg tablet 12.5 mg PO DAILY #90 tabs 09/20/23 10/11/23 Rx lisinopril 5 mg tablet 5 mg PO DAILY #90 tabs 09/20/23 10/11/23 Rx Allergy/AdvReac Type Severity Reaction Status Date / Time No Known Allergies Allergy Verified 08/12/24 07:32 Family History Mother Hypertension Colon polyp Father Parkinson disease Hypertension Grandmother Arthritis Breast cancer Grandfather Colon cancer Grandfather Myocardial infarction Surgical History Hx of colonoscopy History of H/O removal of cyst H/O tubal ligation History of tonsillectomy Social History household members: children number of children: 3 current occupational status: employed 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
[2023-10-11] MEDS: Lactated Ringers 1,000 ML 15 ML IV (07:45)
--- NOTE | 2023-10-11 08:24 | PCM.HP.STD ---
HPI - General General Date of Admission: 10/11/23 Date of Service: 10/11/23 Chief Complaint: Screening colonoscopy HPI Mar TREJO, is a 58 F who presents today for screening colonoscopy. She has a strong family history of colon cancer and colon polyps. She had a colonoscopy approximately 2 years ago and it was normal. She is not have any abdominal pain, cramping, nausea, vomiting or diarrhea. She denies any lower GI bleeding. Overall she is in very good health. [facility] Medical History Wears contact lenses Post-menopausal High cholesterol Kidney stone Non-smoker Family hx of colon cancer Encounter for vaccination Colon cancer screening Preventative health care Hyperlipidemia Urinary urgency Varicose veins of right lower extremity COVID-19 Health care maintenance Back pain HTN (hypertension) Home Medications ?Medication ?Instructions ?Recorded ?Last Taken ?Type multivitamin 1 cap PO DAILY 10/31/19 Unknown History hydrochlorothiazide 12.5 mg tablet 12.5 mg PO DAILY #90 tabs 09/20/23 10/11/23 Rx lisinopril 5 mg tablet 5 mg PO DAILY #90 tabs 09/20/23 10/11/23 Rx Allergy/AdvReac Type Severity Reaction Status Date / Time No Known Allergies Allergy Verified 10/11/23 07:32 Family History Mother Hypertension Colon polyp Father Parkinson disease Hypertension Grandmother Arthritis Breast cancer Grandfather Colon cancer Grandfather Myocardial infarction Surgical History Hx of colonoscopy History of H/O removal of cyst H/O tubal ligation History of tonsillectomy Social History household members: children number of children: 3 current occupational status: employed 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, [employer], [employer] history of 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 travel: Yes sexually active: Yes Smoking Status: Never smoker alcohol intake: current alcohol intake frequency: holidays/special occasions only substance use type: does not use what type of physical activity do you participate in: walking seatbelt use: sometimes do you feel safe at home: Yes additional social history: Celeste PINEDA Review of Systems ROS Unobtainable: other Constitutional Constitutional: Denies fatigue, fever(s), poor appetite, weight gain or weight loss ENT HEENT: Denies mouth lesions Cardiovascular Cardiovascular: Denies abdominal bloating, abdominal edema or abdominal pain Respiratory/Chest Respiratory/Chest: Denies change in mental status, change in phlegm color, chest congestion or chest tightness Gastrointestinal Gastrointestinal: Denies belching, bloating, change in bowel habits, change in stool character, chewing difficulty, coffee ground emesis, constipation, cramping, diarrhea, dyspepsia, dysphagia, early satiety, excessive flatus, fecal incontinence, heartburn, hematemesis, hematochezia, hemorrhoids, loose stools, melena, nausea, odynophagia, rectal bleeding, tenesmus, vomiting or weight changes Genitourinary Genitourinary: Denies abdominal discomfort, burning urination or itching Musculoskeletal Musculoskeletal: Reports as per HPI; Denies muscle weakness or myalgias Integumentary Integumentary: Denies jaundice Neurologic Neurologic: Denies lack of coordination or weakness Psychiatric Psychiatric: Denies confusion, depression, memory loss, mood swings, paranoia or suicidal ideation Endocrine Endocrinology: Denies systems reviewed and no addt'l complaints, except as documented Hematologic/Lymphatic Hematologic/Lymphatic: Denies anemia, easy bleeding, easy bruising or lymphadenopathy Allergic/Immunologic Allergic/Immunologic: Denies systems reviewed and no addt'l complaints, except as documented Vital Signs Vital Signs Vital Signs: 10/11/23 07:34 10/11/23 07:34 10/11/23 07:44 Temperature 98.6 F 98.6 F Temperature Source Temporal Pulse Rate 87 87 Respiratory Rate 16 16 Respiratory Pattern Normal Blood Pressure 118/84 H 118/84 H Blood Pressure Mean 95 Blood Pressure Source Monitor Blood Pressure Position Semi-Fowlers Blood Pressure Location Left Arm Pulse Ox 100 100 Oxygen Delivery Method Room Air Weight Weight: 127 lb 13.89 oz Body Mass Index (BMI) 23.3 Physical Exam Const alert General Appearance: cooperative Orientation / Consciousness: oriented to person HEENT hearing grossly normal bilaterally Head and Scalp: normal to inspection Face and Sinus: face symmetric Nose: external nose normal Mouth: oral and palatal mucosa normal Eyes conjunctivae normal General Eye: normal appearance of both eyes Neck full ROM General: normal visual inspection Lymph Lymphatic: no lymphadenopathy noted Chest inspection of chest normal and palpation of chest normal Chest: symmetrical chest wall rise Resp normal respiratory effort Effort and Inspection: able to speak in complete sentences Cardio regular rate GI non-distended Percussion: normal to percussion Rectal Exam: deferred Neuro Speech: speech normal Gait (Neuro): normal gait Assessment & Plan Assessment/Plan (1) Colon cancer screening: PLAN: She was explained alternatives, risk, benefits including not withstanding bleeding, infection, sepsis, perforation, need for emergent surgery and . She will have an ASA of 3.
--- NOTE | 2023-10-11 08:51 | OP.COLON_ITS ---
Patient Name: Gemma Salamanca Procedure Date: 10/11/2023 8:29 AM Date of : 1965 Age: 58 Procedure: Colonoscopy Indications: Screening for colorectal malignant neoplasm Providers: Antonio Carbone DO Referring MD: Antonio Carbone DO Medicines: Monitored Anesthesia Care Patient Profile: This is a 58 year old female. Refer to note in patient chart for documentation of history and physical. Last Colonoscopy: 10 years ago. Complications: No immediate complications. Procedure: Pre-Anesthesia Assessment: - Prior to the procedure, a History and Physical was performed, and patient medications and allergies were reviewed. The patient is competent. The risks and benefits of the procedure and the sedation options and risks were discussed with the patient. All questions were answered and informed consent was obtained. Patient identification and proposed procedure were verified by the physician in the pre-procedure area. Mental Status Examination: alert and oriented. Airway Examination: normal oropharyngeal airway and neck mobility. Respiratory Examination: clear to auscultation. CV Examination: normal. Prophylactic Antibiotics: The patient does not require prophylactic antibiotics. Prior Anticoagulants: The patient has taken no anticoagulant or antiplatelet agents except for NSAID medication. ASA Grade Assessment: II - A patient with mild systemic disease. After reviewing the risks and benefits, the patient was deemed in satisfactory condition to undergo the procedure. The anesthesia plan was to use monitored anesthesia care (MAC). Immediately prior to administration of medications, the patient was re-assessed for adequacy to receive sedatives. The heart rate, respiratory rate, oxygen saturations, blood pressure, adequacy of pulmonary ventilation, and response to care were monitored throughout the procedure. The physical status of the patient was re-assessed after the procedure. After I obtained informed consent, the scope was passed under direct vision. Throughout the procedure, the patient's blood pressure, pulse, and oxygen saturations were monitored continuously. The Colonoscope was introduced through the anus and advanced to the cecum, identified by appendiceal orifice and ileocecal valve. The colonoscopy was performed without difficulty. Scope In: 8:37:40 AM Scope Withdrawal Time 0 hours 7 minutes 25 seconds Scope Out: 8:47:43 AM Total Procedure Duration Time 0 hours 10 minutes 3 seconds Findings: The perianal and digital rectal examinations were normal. A few small-mouthed diverticula were found in the recto-sigmoid colon and sigmoid colon. The exam was otherwise normal throughout the examined colon. Impression: - Diverticulosis in the recto-sigmoid colon and in the sigmoid colon. - No specimens collected. Recommendation: - Discharge patient to home. - Resume previous diet. - Continue present medications. - Repeat colonoscopy in 10 years for screening purposes. Procedure Code(s): --- Professional --- G0121, Colorectal cancer screening; colonoscopy on individual not meeting criteria for high risk CPT copyright 2021 [employer]. All rights reserved. The codes documented in this report are preliminary and upon inside meter tester review may be revised to meet current compliance requirements. Antonio Carbone DO 10/11/2023 8:51:08 AM This report has been signed electronically. Number of Addenda: 0 Note Initiated On: 10/11/2023 8:29 AM
--- NOTE | 2023-10-11 08:51 | OP.CCLET_ITS ---
10/11/2023 Yunior Rosario MD [address] [place] [address] [place] [address] Re : Colonoscopy procedure for Gemma Salamanca Dear Dr. Rosario This procedure was performed on Wednesday, October 11, 2023. My impressions and recommendations are as follows: Impressions : - Diverticulosis in the recto-sigmoid colon and in the sigmoid colon. - No specimens collected. Recommendations : - Discharge patient to home. - Resume previous diet. - Continue present medications. - Repeat colonoscopy in 10 years for screening purposes. My findings are described in the full procedure note, which is enclosed. If I can be of further assistance, please feel free to contact me at . Sincerely, Antonio Carbone, 10/11/2023 8:51:08 AM This report has been signed electronically.
--- NOTE | 2023-10-11 08:53 | PCM.POST.ANE ---
Anesthesia: Postop Eval I Current Vital Signs Temperature: 97.4 F Pulse Rate: 74 Blood Pressure: 90/66 Respiratory Rate: 16 Pulse Ox: 97 Oxygen Delivery Method: Room Air Assessment Airway patent: Yes Spontaneous unlabored respirations: Yes Mental status: Asleep nausea: No Vomiting: No Anesthesia Complication: No Fluid Hydration Crystalloid volume administer (ml): 600 Total IV fluid infused: 600 Progress Note Anesthesia document: Postop Eval 1 completed: Yes
--- NOTE | 2023-10-11 11:46 | PCM.POSTANE2 ---
Anesthesia Postop Eval I Sum Postop Eval Completion status Anesthesia document: Postop Eval 1 completed: Yes Anesthesia Postop Eval I Summary Anesthesia Postop Eval I Summary: Anesthesia Postop Eval I: Assessment Summary Airway patent Yes 10/11/23 08:54 [email or web address] Spontaneous unlabored Yes 10/11/23 08:54 [email or web address] respirations Mental status Asleep 10/11/23 08:54 [email or web address] nausea No 10/11/23 08:54 [email or web address] Vomiting No 10/11/23 08:54 [email or web address] Anesthesia Postop Eval I: Fluid Summary Crystalloid volume administer 600 10/11/23 08:54 [email or web address] (ml) Colloids volume administered ( ml) Blood Product volume administered (ml) Total IV fluid infused 600 10/11/23 08:54 [email or web address] Anesthesia Postop Eval I: Summary Notes Anesthesia Complication No 10/11/23 08:54 [email or web address] Anesthesia Complication Comment: Post-operative progress note Anesthesia: Postop Eval II Evaluation Mental status: Awake and Calm Pain Level: 0 nausea: No Vomiting: No Complications Anesthesia Complication: No
== END 2023-10-11 09:44 | disposition home or self-care (01) ==
LOC: EN 07:21 → AC 07:22
PROVIDERS: PCP Internal Medicine; Referring Provider Internal Medicine; Visit Provider Internal Medicine Gastroenterology
PROC: 0DJD8ZZ Inspection of Lower Intestinal Tract, Via Natural or Artificial Opening Endoscopic (ICD-10-PCS; CPT 45378; principal; 2023-10-11 08:25)
DX: Z12.11 Encounter for screening for malignant neoplasm of colon (principal); K57.30 Diverticulosis of large intestine without perforation or abscess without bleeding; Z80.0 Family history of malignant neoplasm of digestive organs; E78.00 Pure hypercholesterolemia, unspecified; I10 Essential (primary) hypertension; Z79.899 Other long term (current) drug therapy
CPT/HCPCS: 45378; J7120; J2405

== ENCOUNTER → 2023-10-15 | Outpatient (CLI) | payer OTHER, SELFPAY ==
--- NOTE | 2023-10-15 17:02 | CT_ITS ---
EXAM: CT Abdomen And Pelvis W/O Contrast Injection HISTORY: Hydronephrosis, stone TECHNIQUE: Routine protocol CT abdomen and pelvis. IV Contrast: None.. Oral contrast: None. RADIATION DOSAGE (If Supplied By Facility): CTDIvol = ( 6.23 ) mGy, DLP = ( 287.92 ) mGycm Individualized dose optimization techniques were used for this CT. COMPARISON: CT abdomen and pelvis 03/05/2004. LIMITATIONS: None. FINDINGS: LOWER CHEST: Reticular opacities in the left lung base likely scarring.. LIVER: Grossly unremarkable. GALLBLADDER AND BILIARY TREE: Grossly unremarkable. PANCREAS: Grossly unremarkable. SPLEEN: Grossly unremarkable. ADRENAL GLANDS: Grossly unremarkable. KIDNEYS AND URETERS: Right kidney malrotated. No calculi demonstrated. No hydronephrosis. Multiple calcifications in the pelvis especially on the right appear to be likely vascular. Ureteral calculi less likely although the distal ureters are not well visualized, not dilated. PERITONEUM: No free air. No free fluid. BOWEL: No bowel obstruction. APPENDIX: Visualized and unremarkable. No evidence of acute appendicitis. VESSELS: Abdominal aorta is normal caliber. REPRODUCTIVE ORGANS: Grossly unremarkable URINARY BLADDER: Minimally distended. Prominent wall. ABDOMINAL WALL: Unremarkable. BONES: No acute abnormalities. CT/Abdomen/Pelvis without Cont IMPRESSION: No hydronephrosis. No definite urolithiasis. Calcifications in the pelvis most likely phleboliths. Distal right ureteral calculus difficult to completely exclude although no secondary findings. Prominent wall of the urinary bladder most likely nondistention, correlate for cystitis. Electronically Signed: Carolina Foster MD at 3:08 EDT ,
== END | disposition home or self-care (01) ==
PROVIDERS: PCP Internal Medicine; Referring Provider Urology; Visit Provider Urology
DX: N13.30 Unspecified hydronephrosis (principal); N20.0 Calculus of kidney
CPT/HCPCS: 74176

== ENCOUNTER → 2024-02-18 | Outpatient (CLI) | payer OTHER, SELFPAY ==
[2024-02-18 12:18] LABS: Absolute Lymphocyte Count 1.45 X10^3/uL (0.83-4.51); Absolute Neutrophil Count 1.8 X10^3/uL (2.0-7.7); Basophil# 0.03 X10^3/uL; Basophil% 0.8 % (0-1); Eosinophil# 0.04 X10^3/uL; Eosinophils% 1.1 % (0-5); Hemoglobin 14.4 g/dL (12.0-15.0); Lymphocyte # 1.45 X10^3/ul (0.83-4.51); Lymphocyte % 39.3 % (19-41); Mean Corp Hgb Conc 32.7 g/dL (32-36); Mean Corpuscular Hgb 30.6 pg (27.0-32.0); Mean Corpuscular Volume 93.6 fL (81-99); Mean Platelet Vol. 9.8 fl (6.2-12.0); Monocyte# 0.36 X10^3/uL; Monocyte% 9.8 % (0-10); NRBC Flagged by Analyzer 0 % (0-5); Neutrophil # 1.81 X10^3/uL (2.7-7.7); Platelet Count 232 K/mm3 (150-450); RBC Distribution Width CV 11.9 % (11.6-14.6); RBC Distribution Width SD 41.2 fl (35.1-43.9); White Blood Count 3.7 K/mm3 (4.4-11.0)
[2024-02-18 12:49] LABS: ALB/GLOB Ratio 1.2 RATIO (0.9-2.4); AST(SGOT) 19 U/L (15-37); Alanine Aminotransfer ALT/SGPT 25 U/L (13-56); Albumin, Serum 3.8 g/dL (3.2-5.0); Alkaline Phosphatase 89 U/L (45-117); Anion Gap 6 (5-15); BUN 22 mg/dL (7-18); BUN/Creat Ratio 23.7 RATIO (10-20); Calcium,Total 9.3 mg/dL (8.5-10.1); Chloride 102 mmol/L (98-107); Creatinine, Serum 0.93 mg/dL (0.55-1.02); EST Glomerular Filtration Rate 66 mL/min (>60); Est Glom Filt Rate - Afr Amer 80 mL/min (>60); Globulin 3.3 g/dL (2.2-4.2); Glucose 97 mg/dL (74-106); Magnesium 2.3 mg/dL (1.6-2.6); Protein, Total 7.1 g/dL (6.4-8.2); Sodium Level 137 mmol/L (136-145); T4 Free Direct 1.17 ng/dL (0.76-1.46)
== END | disposition home or self-care (01) ==
LOC: BIMLAB 10:04
PROVIDERS: PCP Internal Medicine; Referring Provider Internal Medicine; Visit Provider Internal Medicine
DX: I49.3 Ventricular premature depolarization (principal); I10 Essential (primary) hypertension; R94.31 Abnormal electrocardiogram [ECG] [EKG]
CPT/HCPCS: 36415; 80053; 83735; 84439; 84443; 85025

== ENCOUNTER 2024-03-04 13:42 | Emergency (ER) | payer OTHER, SELFPAY ==
[2024-03-04 13:43] VITALS: BP 146/104; PULSE 121; RESP 18; TEMP 37.9; O2SAT 100; BMI 23.8
[2024-03-04 13:45] VITALS: BP 161/97; PULSE 121; RESP 16; TEMP 36.8; O2SAT 100
--- NOTE | 2024-03-04 14:08 | EX.ED.DYSGE1 ---
HPI <CHASE Avila - Last Filed: 03/04/24 16:01> History of Present Illness Chief Complaint: Cellulitis Narrative Narrative: Patient presenting today due to a paronychia to her left index finger that started last Wednesday. She did go to urgent care and reports that there was nothing to be drained at that time and was placed on a course of Keflex 3 times daily. Yesterday and today the area became more swollen and painful, prompting her to come in for evaluation. She denies any fevers or chills. She does not have a history of diabetes or any immunocompromising conditions. PFSH <CHASE Avila - Last Filed: 03/04/24 16:01> [facility] Medical History PVC (premature ventricular contraction) Abnormal EKG Wears contact lenses Post-menopausal High cholesterol Kidney stone Non-smoker Family hx of colon cancer Encounter for vaccination Colon cancer screening Preventative health care Hyperlipidemia Urinary urgency Varicose veins of right lower extremity COVID-19 Health care maintenance Back pain HTN (hypertension) Home Medications ?Medication ?Instructions ?Recorded ?Last Taken ?Type multivitamin 1 cap PO DAILY 10/31/19 Unknown History hydrochlorothiazide 12.5 mg tablet 12.5 mg PO DAILY #90 tabs 09/20/23 10/11/23 Rx lisinopril 5 mg tablet 5 mg PO DAILY #90 tabs 09/20/23 10/11/23 Rx cephalexin 500 mg capsule 500 mg PO Q8H 10 days #30 caps 03/02/24 Unknown Rx cephalexin 500 mg capsule 500 mg PO Q12 #10 CAPSULES 03/04/24 Unknown Rx hydrocodone-acetaminophen 5-325mg 1 tab PO Q4H PRN PRN Pain 3 days 03/04/24 Unknown Rx 5mg-325mg #14 TABLETS sulfamethoxazole 800 1 tab PO BID 10 days #20 tabs 03/04/24 Unknown Rx mg-trimethoprim 160 mg tablet (Bactrim DS) Allergy/AdvReac Type Severity Reaction Status Date / Time No Known Allergies Allergy Verified 03/04/24 13:45 Family History Mother Hypertension Colon polyp Father Parkinson disease Hypertension Grandmother Arthritis Breast cancer Grandfather Colon cancer Grandfather Myocardial infarction Surgical History Hx of colonoscopy History of H/O removal of cyst H/O tubal ligation History of tonsillectomy Social History household members: children number of children: 3 current occupational status: employed 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, [employer], [employer] history of recent travel: Yes sexually active: Yes Smoking Status: Never smoker alcohol intake: current alcohol intake frequency: holidays/special occasions only substance use type: does not use what type of physical activity do you participate in: walking seatbelt use: sometimes do you feel safe at home: Yes additional social history: Celeste PINEDA <CHASE Avila - Last Filed: 03/04/24 16:01> ROS ED Constitutional Constitutional ED: Denies chills or fever(s) Cardiovascular Cardiovascular: Denies chest pain Respiratory/Chest Respiratory/Chest: Denies dyspnea Gastrointestinal Gastrointestinal: Denies abdominal pain, nausea or vomiting Musculoskeletal Musculoskeletal: Reports arthralgias; Denies myalgias Integumentary Reports abscess; Denies rash Neurologic Neurologic: Denies weakness EXAM <CHASE Avila - Last Filed: 03/04/24 16:01> Physical Exam Const Vital Signs: 03/04/24 13:43 03/04/24 13:45 03/04/24 14:45 Temperature 100.2 F H 98.2 F 98 F Temperature Source Oral Oral Oral Pulse Rate 121 H 121 H 97 Respiratory Rate 18 16 16 Blood Pressure 146/104 H 161/97 H 126/89 H Blood Pressure Mean 118 118 101 Pulse Ox 100 100 97 Oxygen Delivery Method Room Air Room Air Room Air 03/04/24 15:00 Temperature 98 F Temperature Source Oral Pulse Rate 103 H Respiratory Rate 16 Blood Pressure 137/84 H Blood Pressure Mean 101 Pulse Ox 96 Oxygen Delivery Method Room Air Positive well nourished, well developed and no apparent distress General Appearance ED: well developed HEENT Reports normocephalic and head/scalp atraumatic Mouth ED: Yes moist mucous membranes normal Eyes PERRL and EOMs intact bilaterally Neck full ROM and supple Chest Wall inspection of chest normal Resp normal respiratory effort and clear to auscultation bilaterally Cardio regular rate and regular rhythm GI soft to palpation, non-tender, non-distended and no masses Back/Spine normal ROM and normal to inspection Extremity full ROM Extremity Narrative: Paronychia left index finger with abscess formation and erythema to the distal aspect of the left index finger. Left radial pulse 2+ cap refill, sensation intact. Neuro oriented x3, CN's II-XII intact bilaterally, moves all extremities, no focal motor deficits and no sensory deficits noted Sensorium / Orientation: awake and alert Psych mental status grossly normal and thought process normal Skin no rashes or lesions noted and no wounds <Dr. Moises Lane MD - Last Filed: 03/04/24 14:16> Physical Exam Const Vital Signs: 03/04/24 13:43 03/04/24 13:45 03/04/24 14:45 Temperature 100.2 F H 98.2 F 98 F Temperature Source Oral Oral Oral Pulse Rate 121 H 121 H 97 Respiratory Rate 18 16 16 Blood Pressure 146/104 H 161/97 H 126/89 H Blood Pressure Mean 118 118 101 Pulse Ox 100 100 97 Oxygen Delivery Method Room Air Room Air Room Air 03/04/24 15:00 Temperature 98 F Temperature Source Oral Pulse Rate 103 H Respiratory Rate 16 Blood Pressure 137/84 H Blood Pressure Mean 101 Pulse Ox 96 Oxygen Delivery Method Room Air [facility] <CHASE Avila - Last Filed: 03/04/24 16:01> [facility] Narrative Medical decision making narrative: Patient presenting today with a paronychia to the left index finger. She does have a moderate-sized abscess that would require I&D. She has been on Keflex but had no I&D performed initially. The swelling began to worsen yesterday. She otherwise is nontoxic-appearing and in no acute distress. She initially was tachycardic but her heart rate did resolve. Initial forehead temperature in triage was 100.2 ?F, we took an oral temperature and this was 98 ?F, axillary was also 98 ?F. Abscess was I&D, see procedure note. She is currently taking Keflex 3 times daily, we will increase this to 4 times daily and also start her on Bactrim. She has been referred to Dr. Crawford with instructions to call on Wednesday to make an appointment. She was given [place] for pain. Finger soaks were encouraged. Strict return instructions were discussed with her. Patient discharged stable condition. I have personally performed a face to face assessment of the patient and have reviewed the CHRISTINA Note. I performed a substantive portion of the visit including all aspects of the following. My lawson findings include: History is 58-year-old female complaining of pain and swelling and pus left index finger. She was seen in urgent care 2 days ago on started on Keflex 3 times a day. Said initially there was not pus now the swelling is worse and is a pocket of pus just proximal to her left index finger nail. Exam is [well-appearing 58-year-old female. Vital signs are stable afebrile. Initial temperature 100.2 repeat was 98.2. She does not look septic or toxic. She is in no distress. H EENT exam unremarkable. Mytrex members. Neck nontender no lymphadenopathy. Lungs clear to auscultation bilaterally. Heart regular rhythm rate about 110 no murmur. Chest wall ribs nontender. Abdomen soft nontender. Moving all 4 extremities. Neurovascular intact. Left index finger mild swelling and redness. Primarily a moderate sized paronychia on the dorsum of the left index finger just above the nail. This will definitely need drained. There is no lymphangitic streaking. There is no axillary lymphadenopathy. She has normal flexion extension of the finger. There is minimal redness and minimal swelling of the finger itself. Is not a sausage digit. There is no signs of septic joint. Otherwise exam benign.] Medical Decision Making [patient has a left index finger paronychial infection. She is ambidextrous. Writes with her right hand as here with her left hand. Will locally anesthetize the left index finger. Then incise and drainage that paronychia I. She is already on Keflex.] Other additions or changes: [None] <Dr. Moises Lane MD - Last Filed: 03/04/24 14:16> [facility] Narrative Medical decision making narrative: I have personally performed a face to face assessment of the patient and have reviewed the CHRISTINA Note. I performed a substantive portion of the visit including all aspects of the following. My lawson findings include: History is 58-year-old female complaining of pain and swelling and pus left index finger. She was seen in urgent care 2 days ago on started on Keflex 3 times a day. Said initially there was not pus now the swelling is worse and is a pocket of pus just proximal to her left index finger nail. Exam is [well-appearing 58-year-old female. Vital signs are stable afebrile. Initial temperature 100.2 repeat was 98.2. She does not look septic or toxic. She is in no distress. H EENT exam unremarkable. Mytrex members. Neck nontender no lymphadenopathy. Lungs clear to auscultation bilaterally. Heart regular rhythm rate about 110 no murmur. Chest wall ribs nontender. Abdomen soft nontender. Moving all 4 extremities. Neurovascular intact. Left index finger mild swelling and redness. Primarily a moderate sized paronychia on the dorsum of the left index finger just above the nail. This will definitely need drained. There is no lymphangitic streaking. There is no axillary lymphadenopathy. She has normal flexion extension of the finger. There is minimal redness and minimal swelling of the finger itself. Is not a sausage digit. There is no signs of septic joint. Otherwise exam benign.] Medical Decision Making [patient has a left index finger paronychial infection. She is ambidextrous. Writes with her right hand as here with her left hand. Will locally anesthetize the left index finger. Then incise and drainage that paronychia I. She is already on Keflex.] Other additions or changes: [None] History & Record Review Discussion w/independent historian: Patient and Family Procedures <CHASE Avila - Last Filed: 03/04/24 16:01> Other Procedures Procedure(s): Her finger was cleansed with chlorhexidine and saline. Digital block was performed with 1% lidocaine. I&D was performed along the cuticle with a #10 blade and copious amounts of purulent discharge was expelled from the wound, this was cultured, another small incision was made just below the cuticle and blood was expelled. Both areas were then irrigated with saline. Wound was then bandaged. Discharge Plan Triage Chief Complaint: Cellulitis ED Midlevel Provider: Jannie Heath ED Provider: Moises Lane Dx/Rx/DC Orders Clinical Impression: Paronychia Instructions: ED Paronychia of the Finger or Toe Prescriptions: New hydrocodone-acetaminophen 5-325 mg tablet 1 tab PO Q4H PRN PRN (Reason: Pain) 3 Days Qty: 14 0RF cephalexin 500 mg capsule 500 mg PO Q12 Qty: 10 0RF sulfamethoxazole-trimethoprim [Bactrim DS] 800-160 mg tablet 1 tab PO BID 10 Days Qty: 20 0RF No Action multivitamin Capsule 1 cap PO DAILY cephalexin 500 mg capsule 500 mg PO Q8H 10 Days Qty: 30 0RF lisinopril 5 mg tablet 5 mg PO DAILY Qty: 90 1RF hydrochlorothiazide 12.5 mg tablet 12.5 mg PO DAILY Qty: 90 1RF Primary Care Provider: Yunior Rosario Referrals: Yunior Rosario MD [Primary Care Provider] - Jerry Crawford MD [Med Staff - Active Staff] - 3-5 Days Activity Restrictions/Additional Instructions: Call Dr. Crawford's office Wednesday for follow-up. Begin taking the Keflex 4 times daily until you run out. Perform soaks with warm soapy water or water with hydrogen peroxide 2-3 times a day for the next several days. Do not soak your hand in any dirty water such as dishwater. Return for any worsening of your symptoms. Print Language: Occitan Disposition Disposition: Home, Self Care
[2024-03-04] MEDS: Lidocaine 1% (20 ml mdv) 20 ML Vial 10 ML INFILT (14:42)
[2024-03-04 14:45] VITALS: BP 126/89; PULSE 97; RESP 16; TEMP 36.6; O2SAT 97
[2024-03-04 15:00] VITALS: BP 137/84; PULSE 103; RESP 16; TEMP 36.6; O2SAT 96
[2024-03-04 15:58] VITALS: BP 151/98; PULSE 88; RESP 16; O2SAT 98
== END 2024-03-04 16:02 | disposition home or self-care (01) ==
PROVIDERS: Emergency Provider Emergency Medicine; PCP Internal Medicine; Visit Provider Emergency Medicine
DX: L03.012 Cellulitis of left finger (principal); E78.00 Pure hypercholesterolemia, unspecified; Z98.51 Tubal ligation status; Z86.16 Personal history of COVID-19; I10 Essential (primary) hypertension
CPT/HCPCS: 10060; 87070; 87077; 87186; 87205; 99283

== ENCOUNTER → 2024-03-15 | Outpatient (CLI) | payer OTHER, SELFPAY ==
--- NOTE | 2024-03-15 12:38 | ECHOD_ITS ---
Reason For Study: Abn EKG Procedure This was a 2D Doppler, Color Flow transthoracic echocardiogram. Exam performed in department. Left Ventricle Normal LV size. Left ventricular systolic function is normal. The left ventricular ejection fraction is 60 %. Stage 1 diastolic dysfunction. No regional wall motion abnormalities noted. Right Ventricle Normal RV size. Normal systolic function. Atria Normal left atrium. Normal right atrium. Mitral Valve Normal mitral valve. Tricuspid Valve Normal tricuspid valve. Aortic Valve Trisinus/trileaflet aortic valve. Pulmonic Valve Normal pulmonic valve. Great Vessels Normal aortic root. The pulmonary artery is normal size. Inferior vena cava collapse with sniff. Pericardium/Pleural No pericardial effusion. MMode/2D Measurements & Calculations LVIDd: 3.3 cm IVSd: 0.90 cm Ao root diam: 2.8 cm LVIDs: 2.0 cm LVPWd: 0.92 cm RVDd: 2.3 cm FS: 38.4 % LAV(MOD-sp2): 18.0 ml LVAd ap4: 18.7 cm2 LVAd ap2: 16.0 cm2 LVLd ap4: 6.9 cm LVLd ap2: 6.1 cm EDV(MOD-sp4): 43.8 ml EDV(MOD-sp2): 36.6 ml EDV(sp4-el): 43.1 ml EDV(sp2-el): 35.8 ml LVAs ap4: 10.8 cm2 LVAs ap2: 10.1 cm2 LVLs ap4: 5.9 cm LVLs ap2: 5.6 cm ESV(MOD-sp4): 17.2 ml ESV(MOD-sp2): 16.0 ml ESV(sp4-el): 16.8 ml ESV(sp2-el): 15.5 ml EF(MOD-sp4): 60.7 % EF(MOD-sp2): 56.3 % EF(sp4-el): 61.1 % SV(MOD-sp4): 26.6 ml SV(MOD-sp2): 20.6 ml SV(sp4-el): 26.3 ml SI(MOD-sp4): 16.8 ml/m2 SI(MOD-sp2): 13.0 ml/m2 LA dimension(2D): 2.3 cm Time Measurements MV dec time: 0.18 sec Doppler Measurements & Calculations MV E max osei: 47.0 cm/sec Lat Peak E' Osei: 8.9 cm/sec Med Peak E' Osei: 6.4 cm/sec MV A max osei: 55.6 cm/sec E/E' lat: 5.3 E/E' med: 7.4 MV E/A: 0.85 MV dec slope: 259.3 cm/sec2 Ao V2 max: 99.8 cm/sec LV V1 max: 82.4 cm/sec Ao max P.0 mmHg LV V1 max P.7 mmHg Ao V2 mean: 73.1 cm/sec LV V1 mean P.8 mmHg Ao mean P.3 mmHg LV V1 mean: 64.3 cm/sec Ao V2 VTI: 17.5 cm LV V1 VTI: 15.4 cm AV (velocity ratio): 0.88 PA V2 max: 76.3 cm/sec ECHO/Echo Complete Interpretation Summary Normal LV size. Left ventricular systolic function is normal. The left ventricular ejection fraction is 60 %. Stage 1 diastolic dysfunction. Structurally normal valves. Ordering Physician: Yunior Rosario Referring Physician: Yunior Rosario Performed By: Ju Gill RDCS
--- NOTE | 2024-03-15 17:56 | STRESSREP ---
Stress Test Report Exercise stress test. 58-year-old lady with a history of abnormal EKG Stress protocol: Resting EKG demonstrates sinus tachycardia with a rate of 102 bpm resting blood pressure is 118/78 mmHg. The patient exercised according to the regular Siva protocol for a total duration of 10 minutes attaining a maximum heart rate of 157 bpm which was 96% of maximum predicted heart rate; the maximum workload was 13.4 metabolic equivalents. At rest there were no ST or T wave changes noted to suggest ischemia and at peak exercise upsloping ST changes only were noted which did not meet the criteria for ischemia. No clinical angina was noted the test was terminated due to the target heart rate being achieved/fatigue. The peak blood pressure was 144/62 mmHg. Rate-pressure product was 20,700. Conclusion: Exercise stress test with no EKG criteria for ischemia at a high workload. Resting sinus tachycardia present.
== END | disposition home or self-care (01) ==
PROVIDERS: PCP Internal Medicine; Referring Provider Internal Medicine; Visit Provider Internal Medicine
DX: R94.31 Abnormal electrocardiogram [ECG] [EKG] (principal); I49.3 Ventricular premature depolarization
CPT/HCPCS: 93017; 93306

== ENCOUNTER → 2024-06-02 | Outpatient (CLI) | payer OTHER, SELFPAY ==
--- NOTE | 2024-06-02 10:04 | BI_ITS ---
EXAM: SCRN MAMM (CAD)W/DAE BILAT 06/02/2024 CLINICAL HISTORY: F, Age 59 y/o , SCREENING TECHNIQUE: Bilateral screening digital breast tomosynthesis with 2D and 3D images. Computer aided detection. COMPARISON: Prior exam(s) dated 04/30/2023, 01/23/2022. FINDINGS: TISSUE DENSITY: The breast tissue is composed of scattered area of fibroglandular density. Bilateral Breast Mammographic Findings: No significant masses, calcifications or other abnormalities are identified. BI/SCRN MAMM (CAD)W/DAE BILAT IMPRESSION: Right Breast: BIRADS 1 NEGATIVE. Left Breast: BIRADS 1 NEGATIVE. OVERALL FINAL ASSESSMENT: BIRADS 1 NEGATIVE. RECOMMENDATION: Routine annual follow-up in 1 Year A letter with findings and recommendations will be mailed to the patient. Reading Location: [id number]
== END | disposition home or self-care (01) ==
PROVIDERS: PCP Internal Medicine; Referring Provider Internal Medicine; Visit Provider Internal Medicine
DX: Z12.31 Encounter for screening mammogram for malignant neoplasm of breast (principal)
CPT/HCPCS: 77063; 77067

== ENCOUNTER → 2024-08-18 | Outpatient (CLI) | payer OTHER, SELFPAY ==
[2024-08-18 12:52] LABS: Anion Gap 11 (5-15); BUN 22 mg/dL (4-19); BUN/Creat Ratio 24.1 RATIO (10-20); Calcium,Total 9.6 mg/dL (7.6-11.0); Carbon Dioxide 25.1 mmol/L (21.0-32.0); Chloride 102 mmol/L (98-108); EST Glomerular Filtration Rate 74 (>60); Glucose 93 mg/dL (70-99); Sodium Level 138 mmol/L (133-145)
== END | disposition home or self-care (01) ==
LOC: BIMLAB 11:09
PROVIDERS: PCP Internal Medicine; Referring Provider Internal Medicine; Visit Provider Internal Medicine
DX: I10 Essential (primary) hypertension (principal)
CPT/HCPCS: 36415; 80048

== ENCOUNTER → 2024-12-26 | Outpatient (CLI) | payer OTHER, SELFPAY ==
[2025-01-01 14:08] LABS: HPV APTIMA, High Risk Negative (Negative)
== END | disposition home or self-care (01) ==
LOC: LABSPEC 12:30
PROVIDERS: PCP Internal Medicine; Referring Provider Nurse Practitioner Women's Health; Visit Provider Nurse Practitioner Women's Health
DX: Z12.4 Encounter for screening for malignant neoplasm of cervix (principal); R87.619 Unspecified abnormal cytological findings in specimens from cervix uteri
CPT/HCPCS: 87624; 88175; G0145